=== PATIENT | female | born 1990 | race Two or more races ===

== ENCOUNTER 2023-01-14 00:11 | Emergency (ER) | payer OTHER ==
[~2023-01-14] VITALS: Ht 162.6 cm; Wt 79.4 kg
== END 2023-01-14 03:53 | disposition home or self-care (01) ==
LOC: ER 00:11
DX: T78.3XXA Angioneurotic edema, initial encounter (principal); Y92.89 Other specified places as the place of occurrence of the external cause; Z88.6 Allergy status to analgesic agent; Z91.048 Other nonmedicinal substance allergy status